=== PATIENT | female | born 1995 | race Hispanic/Latino ===

== ENCOUNTER 2019-05-16 15:36 | Emergency (ER) | payer OTHER ==
[~2019-05-16] VITALS: Ht 157.5 cm; Wt 59.2 kg
[2019-05-16 16:19] LABS: BASO % 0.4 % (0.0-1.0); EOS # 0.1 10^3/uL (0.0-0.5); EOS % 1.9 % (0.0-3.0); HEMATOCRIT 34.1 % (36.0-47.0); HEMOGLOBIN 11.6 g/dl (12.0-15.5); LYMPH # 1.7 10^3/uL (1.5-5.0); LYMPH % 23.5 % (24.0-44.0); MEAN CORPUSCULAR HEMOGLOBIN 31.8 pg (27.0-33.0); MEAN CORPUSCULAR VOLUME 93.4 fl (80.0-96.0); MONO # 0.3 10^3/uL (0.0-0.8); NEUTROPHILS # 5.1 10^3/uL (1.5-8.5); NEUTROPHILS % 69.9 % (36.0-66.0); PLATELET COUNT, AUTOMATED 273 10^3/uL (150-450); RED BLOOD COUNT 3.65 10^6/uL (4.00-5.40); WHITE BLOOD COUNT 7.2 10^3/uL (4.0-10.0)
[2019-05-16 16:45] VITALS: BP 108/55
[2019-05-16 16:54] LABS: HCG, SERUM QUALITATIVE POSITIVE (NEGATIVE)
[2019-05-16 16:56] LABS: BLOOD UREA NITROGEN 7 MG/DL (7-18); CALCIUM LEVEL 8.8 MG/DL (8.5-10.1); CARBON DIOXIDE LEVEL 26 MEQ/L (21-32); CHLORIDE LEVEL 107 MEQ/L (98-107); CREATININE FOR GFR 0.61 MG/DL (0.55-1.30); GLOMERULAR FILTRATION RATE > 60.0 (>60); GLUCOSE, FASTING 101 MG/DL (70-100); HCG, SERUM QUANTITATIVE 21208 MIU/ML; POTASSIUM SERUM 3.5 MEQ/L (3.5-5.1); SODIUM LEVEL 140 MEQ/L (136-145)
== END 2019-05-16 17:10 | disposition admitted as inpatient to this hospital (09) ==
LOC: M ED 15:36
DX: O99.89 Other specified diseases and conditions complicating pregnancy, childbirth and the puerperium (principal); B37.3 Candidiasis of vulva and vagina; R10.31 Right lower quadrant pain; R19.7 Diarrhea, unspecified; Z3A.20 20 weeks gestation of pregnancy; Z88.5 Allergy status to narcotic agent

== ENCOUNTER 2019-05-16 17:04 | Outpatient (CLI) | payer OTHER ==
[~2019-05-16] VITALS: Ht 157.5 cm; Wt 59.8 kg
[2019-05-16 17:25] VITALS: BP 107/59
[2019-05-16 18:23] VITALS: BP 102/54
[2019-05-16] MEDS ORDERED: FLUCONAZOLE 50MG TABLET PO ONE (19:00)
== END 2019-05-16 20:11 | disposition home or self-care (01) ==
LOC: M LDO 17:04
PROVIDERS: ATTEND Advanced Practice Midwife
DX: O99.89 Other specified diseases and conditions complicating pregnancy, childbirth and the puerperium (principal); B37.3 Candidiasis of vulva and vagina; R10.31 Right lower quadrant pain; R19.7 Diarrhea, unspecified; Z3A.20 20 weeks gestation of pregnancy

== ENCOUNTER 2019-06-17 10:22 | Emergency (ER) | payer OTHER ==
[~2019-06-17] VITALS: Ht 157.5 cm; Wt 62.6 kg
[2019-06-17] MEDS ORDERED: LIDO1PAD13 TOP (10:41)
[2019-06-17] MEDS ORDERED: HYDR1CRE93 TOP (10:41)
[2019-06-17] MEDS ORDERED: GABA-845 PO (10:41)
[2019-06-17] MEDS ORDERED: [UNRECOGNIZED DRUG - OTHER] (10:41)
[2019-06-17] MEDS ORDERED: METO10TA2 PO (10:41)
[2019-06-17] MEDS ORDERED: METOCLOPRAMIDE INJ 10MG/2ML VIAL (J2765) IV ONE (11:00)
[2019-06-17] MEDS ORDERED: ACETAMINOPHEN 500 MG TAB PO ONE (11:00)
[2019-06-17] MEDS ORDERED: diphenhydrAMINE INJ 50MG/ML VIAL (J1200) IV ONE (11:00)
[2019-06-17] MEDS ORDERED: NS 1,000 ML IV ONE (11:00)
[2019-06-17 12:29] VITALS: BP 96/54
== END 2019-06-17 13:20 | disposition home or self-care (01) ==
LOC: M ED 10:22
DX: O99.355 Diseases of the nervous system complicating the puerperium (principal); G43.909 Migraine, unspecified, not intractable, without status migrainosus; M54.81 Occipital neuralgia; Z3A.24 24 weeks gestation of pregnancy; Z79.899 Other long term (current) drug therapy; Z88.5 Allergy status to narcotic agent; Z88.8 Allergy status to other drugs, medicaments and biological substances
CPT/HCPCS: 96361; 96374; 96375; 99284; J1200; J2765

== ENCOUNTER 2019-08-11 05:33 | Emergency (ER) | payer OTHER ==
[~2019-08-11] VITALS: Ht 157.5 cm; Wt 64.5 kg
[~2019-08-11 05:33] MED LIST: GABA-845 PO; HYDR1CRE93 TOP; LIDO1PAD13 TOP; METO10TA2 PO; [UNRECOGNIZED DRUG - OTHER]
[2019-08-11] MEDS ORDERED: GNP28TAB2 PO (05:51)
[2019-08-11 08:01] LABS: BASO % 0.5 % (0.0-1.0); EOS # 0.2 10^3/uL (0.0-0.5); EOS % 3.3 % (0.0-3.0); HEMATOCRIT 33.4 % (36.0-47.0); LYMPH # 0.9 10^3/uL (1.5-5.0); LYMPH % 15.4 % (24.0-44.0); MEAN CORPUSCULAR HEMOGLOBIN 31.6 pg (27.0-33.0); MEAN CORPUSCULAR HGB CONC 32.9 g/dl (32.0-36.5); MONO # 0.3 10^3/uL (0.0-0.8); MONO % 5.6 % (0.0-5.0); NEUTROPHILS # 4.6 10^3/uL (1.5-8.5); NEUTROPHILS % 74.9 % (36.0-66.0); PLATELET COUNT, AUTOMATED 262 10^3/uL (150-450); RED BLOOD COUNT 3.48 10^6/uL (4.00-5.40); WHITE BLOOD COUNT 6.1 10^3/uL (4.0-10.0)
[2019-08-11 08:25] LABS: BLOOD UREA NITROGEN 9 MG/DL (7-18); CALCIUM LEVEL 7.8 MG/DL (8.5-10.1); CARBON DIOXIDE LEVEL 25 MEQ/L (21-32); CHLORIDE LEVEL 108 MEQ/L (98-107); CK-MB VALUE MASS < 1.0 NG/ML (<3.6); CPK CREATINE PHOSPHOKINASE 50 U/L (26-192); CREATININE FOR GFR 0.57 MG/DL (0.55-1.30); GLOMERULAR FILTRATION RATE > 60.0 (>60); GLUCOSE, FASTING 72 MG/DL (70-100); POTASSIUM SERUM 3.7 MEQ/L (3.5-5.1); SODIUM LEVEL 139 MEQ/L (136-145); TROPONIN I < 0.02 NG/ML (< 0.10)
[2019-08-11 09:36] VITALS: BP 107/55
--- NOTE | 2019-08-11 09:42 | REP ---
Limited obstetric sonography: History: 33 weeks gestation. Supervision of . Pressure. Findings: Limited obstetric sonography demonstrates a single living intrauterine gestation in a cephalic lie. heart rate is recorded at 135 beats per minute. An anterior placenta is seen without evidence of previa. Amniotic fluid is subjectively low. MARLIN is 2.6 cm which is decreased, (8.4-24.4 cm). SD ratio in the umbilical cord artery by Doppler is normal at 2.23. Impression: Oligohydramnios. Electronically Signed by Sancho Jean MD 08/11/2019 09:34 A
--- NOTE | 2019-08-12 22:12 | ECGEPIP ---
[facility] - ED Test Date: 2019-08-11 Pat Name: LICHA KIRKPATRICK Department: Room: - Gender: Female Front Attendant: : 1995 Requested By: NANCY Fu PA-C Order Number: [id number] Reading MD: Bhavesh Green Measurements Intervals [place] Rate: 73 P: 44 CO: 103 QRS: 50 QRSD: 77 T: 42 QT: 360 QTc: 399 Interpretive Statements SINUS RHYTHM WITH SHORT CO INTERVAL Comparison tracing not on file Electronically Signed on 08-12-2019 22:11:58 EST by Bhavesh Green
== END 2019-08-11 09:40 | disposition admitted as inpatient to this hospital (09) ==
LOC: M ED 05:33
DX: O99.513 Diseases of the respiratory system complicating pregnancy, third trimester (principal); O41.03X0 Oligohydramnios, third trimester, not applicable or unspecified; Z3A.33 33 weeks gestation of pregnancy; Z79.899 Other long term (current) drug therapy; Z88.5 Allergy status to narcotic agent; Z88.8 Allergy status to other drugs, medicaments and biological substances
CPT/HCPCS: 76815; 76820; 80048; 81001; 82550; 82553; 82731; 84484; 85025; 87081; 87210; 87491; 87591; 93005; 99284; J0702

== ENCOUNTER 2019-08-11 09:52 | Outpatient (CLI) | payer OTHER ==
[~2019-08-11] VITALS: Ht 157.5 cm; Wt 65.5 kg
[~2019-08-11 09:52] MED LIST changes: +GNP28TAB2 PO
[2019-08-11 10:09] VITALS: BP 103/58
[2019-08-11] MEDS ORDERED: BETAMETHASONE SOLUSPAN 6MG/ML INJ 5ML (J0702) IM SCH (11:00)
[2019-08-11 13:02] LABS: CHLAMYDIA DNA AMPLIFICATION NEGATIVE (NEGATIVE); GC DNA AMPLIFICATION NEGATIVE (NEGATIVE)
--- NOTE | 2019-08-11 14:37 | IPNPDOC ---
Text Note Date of Service The patient was seen on 08/11/19. NOTE S: Ms. Asif is a 24yo at 32+5wk who initially presented to LND with c/o pelvic pressure and intermittent back pain. She was evaluated in the ER this morning for URI (her children were also sick, with the 10 month old dx with RSV). She reports +FM, denies LOF/VB. She states she has had an increase in vaginal discharge over the past couple of days; she denies itching/burning/odor. This has been complicated by migraine LARSEN, occipitoneuralgia; late entry to care. Her last delivery was 10 months ago, at 35 weeks; she was started on Annamarie at 26wks, administered only three times; she now declines to continue d/t skin reactions. O: VSS, afebrile CBC, CMP, GC, Wet Prep, FFN all negative GBS collected FHR 150s, moderate variability, + accels, few early decelerations noted VE at 1103: 1/20/H, posterior Repeat VE at 1340: unchanged A/P: 24yo at 32+5wks, not in labor at this time; Category I FHT, reactive. Pt received IV hydration 1st Betamethasone administered Return o/a 1130 on [id number] for 2nd dose Strict PTL precautions Meds ordered to be picked up at [place] for URI symptoms (Nasal rinse, Robitu ssin, and Tessalon perles) Quarters slip provided Recommendation for con leave provided (to take care of her children) f/u PRN; Centering appointment scheduled for [id number] VS,Fishbone, I+O VS, Fishbone, I+O Vital Signs Date Time Temp Pulse Resp B/P (MAP) Pulse Ox O2 Delivery O2 Flow Rate FiO2 08/11/19 10:09 97.9 106 20 103/58 (73) HEMANT ALFORD CNM Aug 11, 2019 14:37
== END 2019-08-11 12:09 | disposition home or self-care (01) ==
LOC: M LDO 09:52
PROVIDERS: ATTEND Registered Nurse Maternal Newborn
DX: O99.89 Other specified diseases and conditions complicating pregnancy, childbirth and the puerperium (principal); R10.2 Pelvic and perineal pain; Z3A.35 35 weeks gestation of pregnancy

== ENCOUNTER 2019-08-12 11:53 | Outpatient (CLI) | payer OTHER ==
[~2019-08-12] VITALS: Ht 157.5 cm; Wt 65.4 kg
[2019-08-12 12:11] VITALS: BP 106/57
[2019-08-12] MEDS ORDERED: BETAMETHASONE SOLUSPAN 6MG/ML INJ 5ML (J0702) IM ONE (13:00)
--- NOTE | 2019-08-12 13:00 | IPNPDOC ---
Text Note Date of Service The patient was seen on 08/12/19. NOTE Ms. Asif is a 24yo at 32+6 weeks who presents to L&D today for her second dose of BTMZ due to contractions and a history of delivery. She had a full labor workup yesterday to include a negative FFN. She received her first dose of BTMZ yesterday. Today she reports continued intermittent back pain and contractions. She denies any bleeding or leakage of fluid. She endorses excellent movement. Chaperoned by L&D RN Vitals - VSS, afebrile, normotensive, non tachycardic General - AAOX3, sitting up in bed, NAD Abdomen - Gravid uterus, no fundal tenderness Cervix - ft/thick/high, posterior. (unchanged from yesterday's exam) FHR tracing - Cat I with moderate variability, +accels, no decels. Uterine irritability noted on toco. 12mg IM BTMZ administered for 2nd dose. No cervical change as compared to yesterday. Infectious workup completed yesterday and negative. FFN from yesterday was also negative, thus delivery is highly unlikely within the next 1-2 weeks, especially considering her unchanged cervix on digital exam. Reassuring status. Patient discharged home with return precautions. DO JERRY Galicia CHRISTOPHER J. DO Aug 12, 2019 13:00
== END 2019-08-12 13:10 | disposition home or self-care (01) ==
LOC: M LDO 11:53
PROVIDERS: ATTEND Obstetrics & Gynecology
DX: O60.03 Preterm labor without delivery, third trimester (principal); Z3A.32 32 weeks gestation of pregnancy
CPT/HCPCS: 59025; 96372; G0378; G0463; J0702

== ENCOUNTER 2019-08-17 01:32 | Emergency (ER) | payer OTHER ==
[~2019-08-17] VITALS: Ht 157.5 cm; Wt 64.5 kg
[2019-08-17 02:30] VITALS: BP 120/76
== END 2019-08-17 02:37 | disposition home or self-care (01) ==
LOC: M ED 01:32
DX: O99.89 Other specified diseases and conditions complicating pregnancy, childbirth and the puerperium (principal); K06.9 Disorder of gingiva and edentulous alveolar ridge, unspecified; Z88.5 Allergy status to narcotic agent; Z3A.00 Weeks of gestation of pregnancy not specified

== ENCOUNTER 2019-08-20 00:47 | Inpatient (IN) | payer OTHER ==
[2019-08-20] VITALS (14 sets, daily range): BP systolic 86–132; BP diastolic 47–74
[~2019-08-20] VITALS: Ht 157.5 cm; Wt 64.6 kg
[2019-08-20] MEDS ORDERED: LACTATED RINGER'S 1000 ML IV STA (02:00)
[2019-08-20] MEDS ORDERED: ONDANSETRON 4MG/2ML VIAL (J2405) IV PRN (02:15)
[2019-08-20] MEDS ORDERED: BUTORPHANOL 2 MG/ML INJ (J0595) IV PRN (02:15)
[2019-08-20 02:16] LABS: HEMOGLOBIN 11.4 g/dl (12.0-15.5); MEAN CORPUSCULAR HEMOGLOBIN 31.1 pg (27.0-33.0); MEAN CORPUSCULAR HGB CONC 33.5 g/dl (32.0-36.5); MEAN CORPUSCULAR VOLUME 92.9 fl (80.0-96.0); PLATELET COUNT, AUTOMATED 308 10^3/uL (150-450); RED BLOOD COUNT 3.66 10^6/uL (4.00-5.40); WHITE BLOOD COUNT 9.3 10^3/uL (4.0-10.0)
--- NOTE | 2019-08-20 02:22 | HPEPDOC ---
Obstetrical History & Physical General Date of Admission Aug 20, 2019 at 01:19 History of Present Illness 24 yo at 34+0 weeks gestation by 20+6 week US on 20May2019 (late to car e, did not know she was ) presented to L&D with the complaint of regular, painful contractions that have been worsening throughout the evening. She also reports possible leakage of a small amount of fluid into her pad. She denies any bleeding. She endorses movement. She has a history of an apparent 35 or 36 week and she has received a couple doses of 17-OHP this . Chief Complaint: Contractions, pre-term Information Provided By: Patient Age: 24 : 4 Term: 1 Pre-term: 1 Abortions: 1 Livin Care Care: Limited Care Dating Final EDC: Oct 01, 2019 Final EDC for Daily Update: Oct 01, 2019 Final EDC by: 2nd trimester (US) (MAXIMILIANO set by 20+6 week US on 20May2019. Late to care and unknown LMP (did not know she was initially)) Antepartum Course Diagnos(e)s Apparent history of delivery at 35-36 weeks ---> has received a few doses of 17-OHP this History of anxiety/depression, especially severe --> counseling Past Medical History Past Obstetrical History : Past Obstetrical History: Multigravida ( at 35-36 weeks and also at 39 weeks.) Type of Delivery: Spontaneous Vaginal Del. BAND SAWYER History: History of STD (History of chlamydia in 2nd ) Past Medical History Medical History Depression/anxiety Surgical History: Appendectomy (L/S Appendectomy) Family History Significant Family History: No pertinent family hx Social History Marital Status: Seperated Psychosocial History: Anxiety, Depression * Smoker: non-smoker Alcohol: Denies Drugs: denies Imunizations Tdap status: current Influenza Status: current Allergies Coded Allergies: hydrocodone (Verified Allergy, Severe, b/p drops, 06/17/19) morphine (Verified Allergy, Severe, b/p drops, 06/17/19) oxycodone (Verified Allergy, Severe, b/p drops, 06/17/19) codeine (Verified Allergy, Unknown, b/p drops, 06/17/19) Medications Scheduled Pnv No.95/Ferrous Fum/Folic AC ( Vitamins Tablet) 1 Each Tablet, 1 TAB PO DAILY Physical Examination Physical Examination Chaperoned by L&D RN GENERAL: Alert and oriented times three. ABDOMEN: Gravid and non-tender to touch. FETUS: Is vertex (VTX) by sterile vaginal examination (SVE) EXTREMITIES: No edema. PELVIC EXAM: Normal external genitalia. speculum placed into the vagina. Small amount of white discharge seen in vault. No pooling of fluid and no leakage with valsalva. Swabs obtained for nitrazine and ferning slide. Nitrazine - positive Ferning slide - Negative for ferning. Sperm seen on slide. Bedside TAUS - Cephalic presenting infant Pertinent Laboratoy Data Blood Type: O+ RBC Antibody Screen: Negative HIV: Negative Hepatitis B: Negative Hepatitis C: Unknown Rapid Plasma Reagin: Nonreactive Rubella: Immune Varicella: Immune Chlamydia/Gonorrhea: Negative Group B Streptococcus: Negative (GBS negative as obtained on 11Aug2019) Quad Screen Test: Unknown Cystic Fibrosis: Unknown Glucose Tolerance Test: 80 Anatomy Ultrasound Placenta Location: Anterior Normal Anatomy: Yes Placenta Previa: No Steroid Therapy Steroid Therapy: Yes Date #1: Aug 11, 2019 Date #2: Aug 12, 2019 Reason Concern for labor Vaginal Examination Dilation: 2cm Effacement: 50% Station: -3 Cervical Consistency: Medium Cervical Position: Middle Presentation: Cephalic presentation Position: Vertex (occiput) Assessment Heart Rate (FHR): 150 Variability: Moderate Accelerations: Positive Decelerations: Variable (Sporadic variable decels, not deep or persistent) Tocometer Contractions: Yes Frequency: regular Duration: greater than 60 seconds Strength: palpated as moderate Assessment/Plan Assessment 24 yo at 34+0 weeks by 20+6 week US presents to L&D in labor. Plan Admit to L&D for expectant management of labor. Patient is 34+0 weeks gestation. She is BTMZ complete as of 12Aug2019 and will not require another dose. She is also GBS negative as per swab on 11Aug2019. Apply IV fluids. Will bolus 1L and then run continuously at 125ml/hr. Clear liquid diet IV analgesia while in latent labor and candidate for epidural when in active labor. All patient questions answered. DO JERRY Thompson CHRISTOPHER J. DO Aug 20, 2019 02:22
--- NOTE | 2019-08-20 10:42 | IPNPDOC ---
Obstetrical Progress Note Date of Service Aug 20, 2019 Subjective Received report and assumed care of 24yo at 34+0wks who was admitted this morning in early PTL. Ms. Asif reports that contractions have spaced out, but the intensity has increased; pain now reported at 8/10. She declines pain meds at this time. She is also reporting bloody show. Objective O: VSS, BP normotensive FHR 155, moderate variability, + accels; intermittent periodic variable decelerations CTX: present, mild by palpation, q4-10 minutes SVE at 1020: 3.5/50/-3 Vital Signs Date Time Temp Pulse Resp B/P (MAP) Pulse Ox O2 Delivery O2 Flow Rate FiO2 08/20/19 10:18 93 18 132/74 (93) 08/20/19 07:26 97.3 Assessment and Plan Status: Reassuring Group B Streptococcus: Negative Anticipate: Vaginal Delivery Additional Comments A: Early Pre-term labor, Category II FHT (d/t intermittent variable decelerations), overall reassuring status. P: CEFM x2 IV anelgesia PRN; epidural when she reaches active labor (or sooner if desired) May have meal trays until active labor IV and PO hydration Consult with OB as indicated Reassess in 4-6 hour or sooner PRN Anticipate HEMANT ALFORD CNM Aug 20, 2019 10:42
[2019-08-20] MEDS: LR 1,000 ML IV SCH ×2 (11:05→18:50)
--- NOTE | 2019-08-20 20:59 | IPNPDOC ---
Obstetrical Progress Note Date of Service Aug 20, 2019 Subjective In room for labor progress assessment. Ms. Asif is a 24yo at 34wks who has been admitted since early this morning for PTL. She states that she feels that her contractions have spaced out, but are still painful when they occur. She denies LOF; reports +FM and bloody show. She desires medication to help sleep tonight. Objective O: VSS, BP normotensive FHR 145, moderate variability, + accels, no decels at this time CTX: occasional SVE at 2039: 4/60/-2, BBOW Vital Signs Date Time Temp Pulse Resp B/P (MAP) Pulse Ox O2 Delivery O2 Flow Rate FiO2 08/20/19 18:23 83 18 121/64 (83) 08/20/19 17:23 97.4 Assessment Heart Rate Tracing: Category I Assessment and Plan Status: Reassuring Group B Streptococcus: Negative Anticipate: Vaginal Delivery Additional Comments A: Early PTL, slow progression, Category I FHT P: CEFM x2 PO and IV hydration Can eat meals until in active labor Will write for unisom for sleep IV pain medication available PRN Consult with OB as indicated Anticipate HEMANT ALFORD CNM Aug 20, 2019 20:59
[2019-08-20] MEDS ORDERED: diphenhydrAMINE 25 MG CAP PO ONE (21:00)
[2019-08-21] VITALS (34 sets, daily range): BP systolic 90–126; BP diastolic 44–67
[2019-08-21] MEDS ORDERED: FENTANYL 2MCG/ML ROPIVACAINE 0.2% IN 0.9% NACL 100ML IVBAG As Ordered ONE (07:01)
--- NOTE | 2019-08-21 07:10 | IPNPDOC ---
Obstetrical Progress Note Date of Service Aug 21, 2019 Subjective In room for labor assessment. Ms. Asif is c/o worsening pain with contractions and feeling pressures. She desires exam prior to medication administration. Objective O: VSS, BP normotensive FHR 140s-150s, moderate variability, + accels; appeared to have late decel after exam, but resolved with position change. CTX q 6-8 minutes, strong by palpation SVE: 6/90/-1 with BBOW Vital Signs Date Time Temp Pulse Resp B/P (MAP) Pulse Ox O2 Delivery O2 Flow Rate FiO2 08/21/19 06:08 97.7 68 18 111/58 (75) Assessment and Plan Status: Reassuring Group B Streptococcus: Negative Anticipate: Vaginal Delivery Additional Comments A: Active Labor, Category II FHT (d/t late decel), but overall reassuring. 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
[2019-08-21] MEDS: LR 1,000 ML IV SCH (07:20)
[2019-08-21] MEDS ORDERED: NALOXONE INJ 0.4 MG/1 ML VIAL (J2310) IV PRN (07:44)
[2019-08-21] MEDS ORDERED: EPIDURAL COMMENT XX SCH (07:44)
[2019-08-21] MEDS ORDERED: FENTANYL/ROPIVACAINE/NACL BAG 100 ML EPIDURAL SCH (07:44)
[2019-08-21] MEDS ORDERED: REFRIGERATOR IV KEYS XX PRN (07:44)
[2019-08-21] MEDS ORDERED: LACTATED RINGER'S 1000 ML IV PRN (07:44)
[2019-08-21] MEDS ORDERED: ONDANSETRON 4MG/2ML VIAL (J2405) IV PRN (07:44)
[2019-08-21] MEDS ORDERED: diphenhydrAMINE INJ 50MG/ML VIAL (J1200) IV PRN (07:44)
[2019-08-21] MEDS ORDERED: EPIDURAL/PCA KEYS XX PRN (07:44)
[2019-08-21] MEDS: ePHEDrine SULFATE 25 MG/5 ML(5MG/ML) SYRINGE IV PRN ×2 (08:47→10:34)
--- NOTE | 2019-08-21 09:04 | IPNPDOC ---
Text Note Date of Service The patient was seen on 08/21/19. NOTE patient is a 24 yo at 34+1 weeks gestation by 20+6 week US on [id number] admitted to l&d for labor, HD #2. She continues to have regular painful contractions. Last checked at 0800 this morning to be 6cm dilated. She has epidural for pain management. She is steroid complete. GBS negative. Vital: normal NAD, laying in bed fht: 145/mod alicia/pos accel/no decel toco: ctx q 2mins a/p patient is @34wks, likely in active labor. Will continue expectant management at this point. recheck in 4hrs. Deisy, VS,Ronaldo, I+O VS, Fishbone, I+O Vital Signs Date Time Temp Pulse Resp B/P (MAP) Pulse Ox O2 Delivery O2 Flow Rate FiO2 08/21/19 06:08 97.7 68 18 111/58 (75) I&O- Last 24 Hours up to 6 AM 08/21/19 06:00 Intake Total 1500 ml Balance 1500 ml MAURICE MANZANARES DO Aug 21, 2019 09:04
--- NOTE | 2019-08-21 10:42 | IPNPDOC ---
Text Note Date of Service The patient was seen on 08/21/19. NOTE patient feeling constant pressure. vitals: normal nad abd: gravid, soft, nt fht: 145/mod alicia/pos accel/variable decels toco: ctx q 2-5mins ce: c/c/0, BOW a/p patient in second stage of labor. will start pushing. le, DO VS,Fishbone, I+O VS, Fishbone, I+O Vital Signs Date Time Temp Pulse Resp B/P (MAP) Pulse Ox O2 Delivery O2 Flow Rate FiO2 08/21/19 10:20 69 18 94/44 (61) 08/21/19 08:33 97.9 I&O- Last 24 Hours up to 6 AM 08/21/19 06:00 Intake Total 1500 ml Balance 1500 ml MAURICE MANZANARES DO Aug 21, 2019 10:42
[2019-08-21] MEDS ORDERED: OXYTOCIN 30 UNITS IN 0.9% NaCl 500ML IV BAG (J2590) As Ordered ONE (10:47)
--- NOTE | 2019-08-21 11:34 | DNPDOC ---
[facility] Delivery Note Delivery Note DATE OF DELIVERY: 08/21/19 PREDELIVERY DIAGNOSIS: 34+1/7 weeks' gestation and labor. POST DELIVERY DIAGNOSIS: Delivered. PROCEDURE: ЮЛИЯ BUCKET CHUCKER: Dr. Tim Olivas DO ANESTHESIA: epidural ESTIMATED BLOOD LOSS: 250mL. FINDINGS: 4pound 13 ounce male infant, Score 9/9, nuchal cord times x1, true knot, right compound hand. DELIVERY SUMMARY: Patient checked to be c/c/+1 with BOW. AROM clear. With subsequent push, baby delivere OA, restituted LOT. Nuchal cord manually reduced. Anterior shoulder delivered, followed by right compound hand and posterior shoulder. Body followed with ease. Baby kept below for delay cord clamping. Baby with vigorous cries. Cord clamped x 2, cut by FOB. Baby handed to waiting cell liner for evaluation. Cord blood collected for gas. Pitocin bolus started. Placenta delivered spontaneously. Fundus massaged firm. Vagina/perineum inspection reveals no laceration. Baby and mother bonding when I left the room. DO LEIGHTON Olivas LUAT N. DO Aug 21, 2019 11:34
[2019-08-21 11:35] LABS: CORD GAS ABE V -1.1; CORD GAS HCO3 V 23.7 MEQ/L; CORD GAS O2 SAT V 80.5 %; CORD GAS PCO2 V 39.9 mmHg; CORD GAS PH V 7.391 UNITS; CORD GAS PO2 V 34.4 mmHg; CORD GAS SBC V 23.1 MEQ/L; CORD GAS TCO2 V 24.9 MEQ/L
[2019-08-21 11:36] LABS: CORD GAS ABE A -4.4; CORD GAS HCO3 A 22.9 MEQ/L; CORD GAS O2 SAT A 59.2 %; CORD GAS PH A 7.27 UNITS; CORD GAS PO2 A 24.9 mmHg; CORD GAS SBC A 20.1 MEQ/L; CORD GAS TCO2 A 24.5 MEQ/L
[2019-08-21] MEDS ORDERED: RHOGAM 300 MCG (1500 IU) INJ (J2790) IM SCH (11:45)
[2019-08-21] MEDS ORDERED: MEASLES,MUMPS,RUBELLA VACCINE INJ (MMR-II) (90707) SC SCH (11:45)
[2019-08-21] MEDS ORDERED: OXYTOCIN DRIP 30 UNITS in IV 1 EA IV SCH (11:45)
[2019-08-21] MEDS ORDERED: ACETAMINOPHEN TAB 650MG DOSE (2X325MG) PO PRN (11:45)
[2019-08-21] MEDS ORDERED: DIBUCAINE 1% OINTMENT 30GM TOP PRN (11:45)
[2019-08-21] MEDS ORDERED: DOCUSATE SODIUM 100 MG CAP PO PRN (11:45)
[2019-08-21] MEDS ORDERED: LR 1,000 ML IV SCH (12:00)
[2019-08-21] MEDS ORDERED: SLF 3 ML SYR IV SCH (13:30)
[2019-08-21] MEDS ORDERED: SLF 3 ML SYR IV PRN (18:30)
[2019-08-21] MEDS: IBUPROFEN 800 MG TAB PO PRN (20:41)
[2019-08-22] MEDS: IBUPROFEN 800 MG TAB PO PRN (04:06)
[2019-08-22 06:00] VITALS: BP 105/53
--- NOTE | 2019-08-22 08:00 | IPNPDOC ---
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 Patient without concerns today. She has been ambulating, voiding spontaneously without issue and tolerating regular diet. Breast pumping without issue. Reports lochia is light. Patient plans to use paragard for contraception. OBJECTIVE: VITAL SIGNS: Within normal limits, afebrile. Alert and oriented times three. Abdomen: Fundus firm at U-1. Soft, NTTP. LE: neg edema/erythema/tenderness A/P Patient is ppd #1, doing well. baby in NICU. encourage breast pumping. convalescent erick given. discharge to boarding today. Deisy, VS, I&O, [facility] Vital Signs/I&O Vital Signs Date Time Temp Pulse Resp B/P (MAP) Pulse Ox O2 Delivery O2 Flow Rate FiO2 08/22/19 06:00 98.8 83 20 105/53 (70) 99 I&O- Last 24 Hours up to 6 AM 08/22/19 06:00 Intake Total 1840 ml Output Total 1500 ml Balance 340 ml Laboratory Data 24H LABS Laboratory Tests 2 08/21/19 11:28: Cord Arterial Blood pH 7.270, Cord Arterial Blood PCO2 51.0, Cord Arterial Blood PO2 24.9, Cord Arterial Blood HCO3 22.9, Cord Arterial Blood Total CO2 24.5, Cord Arterial Blood Base Excess -4.4, Cord Arterial Base Excess (Standard 20.1, Cord Arterial Bld Oxygen Saturation 59.2, Cord Venous Blood pH 7.391, Cord Venous Blood PCO2 39.9, Cord Venous Blood PO2 34.4, Cord Venous Blood HCO3 23.7, Cord Venous Blood Total CO2 24.9, Cord Venous Base Excess (Actual) -1.1, Cord Venous Base Excess (Standard) 23.1, Cord Venous Blood Oxygen Saturation 80.5 MAURICE MANZANARES DO Aug 22, 2019 08:00
--- NOTE | 2019-08-22 08:10 | OBDS ---
[facility] Obstetrical Discharge Sum. Obstetrical Discharge Summary Warning Analyst/Provider: MAURICE MANZANARES DO : 4 Term: 1 Pre-term: 2 Abortions: 1 Livin VDRL: Non-Reactive Rh: Positive Rubella: Immune Infant Sex: Male Weight: pounds (4), ounces (13), grams Anesthesia: Regional Anesthesia A/P, Post Course List any complications Admission diagnosis: labor @ 34wks gestation Discharge diagnosis: Condition at Discharge: stable Discharge Instructions: Home Activity: as tolerated Diet: regular Medications: to be picked up at [facility] Follow-up: 2wks Discharge Summary: Patient admitted at 34 wks gestation for labor. She was given betamethasone series for lung maturity about a week prior to this admission. Patient progressed to have a spontaneous vaginal delivery. Patient's course uncomplicated and she meets discharge criteria on day #1. MAURIEC MANZANARES DO Aug 21, 2019 11:48
[2019-08-22] MEDS ORDERED: PRENATAL VITAMINS CHEWABLE TABLET PO SCH (09:00)
== END 2019-08-22 14:40 | disposition home or self-care (01) | DRG 807 ==
LOC: M LDO 00:47 → M LDI 01:19 → M OBS 08-21 14:13
PROVIDERS: ADMIT Obstetrics & Gynecology; ATTEND Obstetrics & Gynecology
PROC: 10E0XZZ Delivery of Products of Conception, External Approach (ICD-10-PCS; principal; 2019-08-21)
PROC: 10907ZC Drainage of Amniotic Fluid, Therapeutic from Products of Conception, Via Natural or Artificial Opening (ICD-10-PCS; 2019-08-21)
DX: O60.14X0 Preterm labor third trimester with preterm delivery third trimester, not applicable or unspecified (principal); Z37.0 Single live birth; Z3A.34 34 weeks gestation of pregnancy; O69.81X0 Labor and delivery complicated by cord around neck, without compression, not applicable or unspecified; O69.2XX0 Labor and delivery complicated by other cord entanglement, with compression, not applicable or unspecified; O64.5XX0 Obstructed labor due to compound presentation, not applicable or unspecified

== ENCOUNTER → 2020-05-12 | Outpatient (REF) | payer OTHER ==
[~2020-05-12] MED LIST changes: +MACR100C43 PO
== END ==
LOC: M LAB REF 16:15
PROVIDERS: ATTEND Physician Assistant Medical
DX: Z20.828 Contact with and (suspected) exposure to other viral communicable diseases (principal)

== ENCOUNTER 2020-07-03 09:10 | Emergency (ER) | payer OTHER ==
[~2020-07-03] VITALS: Ht 157.5 cm; Wt 53.7 kg
[~2020-07-03 09:10] MED LIST changes: -MACR100C43 PO
[2020-07-03] MEDS: GASTROGRAFIN SOLUTION 30ML PO SCH ×2 (10:12→10:58)
[2020-07-03 10:15] LABS: BASO % 0.7 % (0.0-1.0); EOS # 0.1 10^3/uL (0.0-0.5); EOS % 1.4 % (0.0-3.0); HEMATOCRIT 38.4 % (36.0-47.0); HEMOGLOBIN 12.7 g/dl (12.0-15.5); LYMPH # 1.6 10^3/uL (1.5-5.0); LYMPH % 35.6 % (24.0-44.0); MEAN CORPUSCULAR HEMOGLOBIN 30.3 pg (27.0-33.0); MEAN CORPUSCULAR HGB CONC 33.1 g/dl (32.0-36.5); MEAN CORPUSCULAR VOLUME 91.6 fl (80.0-96.0); MONO # 0.3 10^3/uL (0.0-0.8); MONO % 5.7 % (0.0-5.0); NEUTROPHILS # 2.5 10^3/uL (1.5-8.5); NEUTROPHILS % 56.1 % (36.0-66.0); PLATELET COUNT, AUTOMATED 285 10^3/uL (150-450); RED BLOOD COUNT 4.19 10^6/uL (4.00-5.40); WHITE BLOOD COUNT 4.4 10^3/uL (4.0-10.0)
[2020-07-03] MEDS ORDERED: ONDANSETRON 4MG/2ML VIAL IV ONE (10:45)
[2020-07-03 11:01] LABS: ALBUMIN 3.7 GM/DL (3.2-5.2); ALT/SGPT 15 U/L (12-78); AMYLASE 46 U/L (25-115); BILIRUBIN,DIRECT < 0.1 MG/DL (0.0-0.2); BILIRUBIN,TOTAL 0.4 MG/DL (0.2-1.0); LIPASE 85 U/L (73-393); TOTAL PROTEIN 6.9 GM/DL (6.4-8.2)
[2020-07-03] MEDS ORDERED: ISOVUE-370 76% 100ML VIAL As Ordered ONE (11:37)
--- NOTE | 2020-07-03 12:10 | REP ---
INDICATION: diffuse abd pain x5 mo's, incr LLQ, FHX celiacs, mucous stoo. COMPARISON: None. TECHNIQUE: Oral Gastrografin mixture per our bowel contrast protocol. Bolus of 100 mL Isovue 370 scanning through the abdomen and pelvis with coronal and sagittal reconstructions provided. FINDINGS: CT abdomen: Lung bases are clear. Heart is not enlarged there is no pericardial thickening or effusion. No hiatal hernia. There is no some hepatosplenomegaly focal splenic lesion or biliary dilatation sub cm low-density focus right hepatic lobe near the dome of the diaphragm consistent with a benign finding. Gallbladder shows no calcified stone or mass visualized pancreas unremarkable. Oral contrast in the stomach without wall thickening or mass. There is nonspecific thickening of proximal small bowel loops in the left upper quadrant jejunum in its left upper quadrant. This is not dilated. Remainder of mid to distal jejunum and ileum show no dilatation or wall thickening. The terminal ileum appear grossly unremarkable. Stool and gas throughout the abdominal portion of the colon with oral contrast reaching the right colon. There is no ascites, perforation or free air. Adrenal glands are normal. The kidneys show symmetric enhancement without mass, hydronephrosis, stone or cyst. There are no inflammatory changes about the cecum. Lung window review of all CT slices shows no perforation. Bone windows show the lumbar, lower thoracic spine and the posterior elements as well as visualized ribs intact CT pelvis: The bony sacrum, SI joints, iliac bones and hips of were unremarkable. Distal left colon, sigmoid and rectum without signs of colitis or diverticulitis. I do not see pelvic free fluid. Bladder is partially filled without wall thickening, mass or stone. Uterus anteverted not grossly enlarged. In the right parametrial location there is enhancing structure with some lower density central region and appearance favors a adnexal process such as hydrosalpinx. No such finding in the left adnexal region. No ventral or inguinal hernia nor pathologic sized inguinal adenopathy. IMPRESSION: 1. Nonspecific mild thickening of proximal jejunal bowel wall loops without dilatation, adjacent fluid or inflammatory change. This may be nonspecific gastroenteritis. Remainder of the jejunum and ileum are unremarkable. 2. The colon and rectum show no sign of colitis diverticulitis stricture or mass. 3. Uterus anteverted in the right parametrial location there is a rim enhancing low-density fluid area suggesting possible hydrosalpinx or other adnexal lesion. I do not see if similar finding on the left side. 4. Solid organs in the upper abdomen without acute finding. Gallbladder partially contracted without calcified stone or mass. Bones intact. <Electronically signed by Blas Culver > 07/03/20 [id number]
--- NOTE | 2020-07-03 13:13 | REP ---
INDICATION: rim enhacing lesion right adenxa on CT. COMPARISON: Comparison is made with today's. TECHNIQUE: Transabdominal and transvaginal scanning were performed. FINDINGS: Uterine dimensions are normal at 9.9 x 4.7 x 5.8 cm. Endometrial echo is 1.0 cm thick and centrally placed. No free fluid is seen in the cul-de-sac. Visualized bladder linares are smooth. The right ovary has dimensions of 3.6 x 2.1 x 2.8 cm. It's Doppler flow is normal with a resistive index of 0.39. There is a 0.6 x 0.3 x 0.4 cm hyperechoic area in the right ovary consistent with a complex cyst. The left ovary could not be seen transabdominally or transvaginally consistent with its high position on pelvic CT study. There is a very small quantity of free fluid in the cul-de-sac. No left adnexal mass or cyst. IMPRESSION: Normal pelvic sonography. <Electronically signed by Sherif Jean > 07/03/20 [id number]
[2020-07-03] MEDS ORDERED: MACR100C43 PO (13:54)
[2020-07-03 14:09] VITALS: BP 108/54
== END 2020-07-03 14:56 | disposition home or self-care (01) ==
LOC: M ED 09:10
DX: R10.9 Unspecified abdominal pain (principal); K52.9 Noninfective gastroenteritis and colitis, unspecified; N39.0 Urinary tract infection, site not specified; Z88.5 Allergy status to narcotic agent; Z87.891 Personal history of nicotine dependence; F10.10 Alcohol abuse, uncomplicated
CPT/HCPCS: 74177; 76830; 76856; 80047; 80076; 81001; 82150; 83690; 84702; 85025; 87088; 87186; 93976; 96374; 99284; J2405; Q9963; Q9967

== ENCOUNTER 2020-08-08 09:24 | Day surgery (SDC) | payer OTHER ==
[~2020-08-08] VITALS: Ht 157.5 cm; Wt 51.3 kg
[~2020-08-08 09:24] MED LIST changes: +MACR100C43 PO; +NS 1,000 ML IV ONE
[2020-08-08] MEDS ORDERED: propofoL 200 MG/20 ML VIAL As Ordered ONE ×2 (10:35→11:27)
[2020-08-08] MEDS ORDERED: LIDOCAINE 2% 100MG/5ML SDV (FOR ANES.) As Ordered ONE (10:35)
[2020-08-08] MEDS ORDERED: fentaNYL 100 MCG/2 ML INJECTION (J3010) As Ordered ONE (11:09)
--- NOTE | 2020-08-08 11:24 | ROOR ---
Patient Name: Patricia Aburto Procedure Date: 08/08/2020 11:07 AM Date of : 1995 Age: 25 Room: [facility] Gender: Female Note Status: Finalized Procedure: Upper Endoscopy + Biopsies Indications: Epigastric abdominal pain, Heartburn, Exclusion of celiac disease Providers: Dayday Calhoun MD Referring MD: KIMBERLY YATES MD Requesting Provider: Medicines: Monitored Anesthesia Care Complications: No immediate complications. Procedure: Pre-Anesthesia Assessment: - The heart rate, respiratory rate, oxygen saturations, blood pressure, adequacy of pulmonary ventilation, and response to care were monitored throughout the procedure. The Endoscope was introduced through the mouth, and advanced to the second part of duodenum. The upper GI endoscopy was accomplished without difficulty. The patient tolerated the procedure well. Findings: The Z-line was regular and was found 40 cm from the incisors. No other significant abnormalities were identified in a careful examination of the stomach. The exam of the duodenum was otherwise normal. Biopsies for histology were taken with a cold forceps in the first portion of the duodenum for evaluation of celiac disease. The exam was otherwise without abnormality. Impression: - Z-line regular, 40 cm from the incisors. - The examination was otherwise normal. - Biopsies were taken with a cold forceps for evaluation of celiac disease. - The examination was otherwise normal. Recommendation: - Patient has a contact number available for emergencies. The signs and symptoms of potential delayed complications were discussed with the patient. Return to normal activities tomorrow. Written discharge instructions were provided to the patient. - High fiber diet. - Discharge patient to home. - Continue present medications. - Await pathology results. - Telephone GI clinic for pathology results in 1 week. - Return to referring physician. - The findings and recommendations were discussed with the patient. Procedure Code(s): --- Professional --- 11121, Esophagogastroduodenoscopy, flexible, transoral; with biopsy, single or multiple Diagnosis Code(s): --- Professional --- R10.13, Epigastric pain R12, Heartburn CPT copyright 2019 [employer] [place] [employer]. All rights reserved. The codes documented in this report are preliminary and upon fish butcher review may be revised to meet current compliance requirements. Dayday Calhonu MD Dayday Calhoun MD 08/08/2020 11:24:09 AM Electronically signed by Dayday Calhoun MD Number of Addenda: 0 Note Initiated On: 08/08/2020 11:07 AM Estimated Blood Loss: Estimated blood loss: none.
--- NOTE | 2020-08-08 11:39 | ROOR ---
Patient Name: Patricia Aburto Procedure Date: 08/08/2020 11:08 AM Date of : 1995 Age: 25 Room: [facility] Gender: Female Note Status: Finalized Procedure: Total Colonoscopy to the Cecum Indications: Abdominal pain in the left lower quadrant Providers: Dayday Calhoun MD Referring MD: KIMBERLY YATES MD Requesting Provider: Medicines: Monitored Anesthesia Care Complications: No immediate complications. Procedure: Pre-Anesthesia Assessment: - The heart rate, respiratory rate, oxygen saturations, blood pressure, adequacy of pulmonary ventilation, and response to care were monitored throughout the procedure. The Colonoscope was introduced through the anus and advanced to the cecum, identified by appendiceal orifice and ileocecal valve. The colonoscopy was performed without difficulty. The patient tolerated the procedure well. The quality of the bowel preparation was excellent. Findings: The perianal and digital rectal examinations were normal. No other significant abnormalities were identified in a careful examination of the remainder of the colon. The exam was otherwise without abnormality on direct and retroflexion views. Impression: - The examination was otherwise normal on direct and retroflexion views. - No specimens collected. - The exam was otherwise normal to the cecum. Recommendation: - Patient has a contact number available for emergencies. The signs and symptoms of potential delayed complications were discussed with the patient. Return to normal activities tomorrow. Written discharge instructions were provided to the patient. - High fiber diet. - Discharge patient to home. - Continue present medications. - Repeat colonoscopy at age 51 for screening purposes. - Return to referring physician. - The findings and recommendations were discussed with the patient. Procedure Code(s): --- Professional --- 10909, Colonoscopy, flexible; diagnostic, including collection of specimen(s) by brushing or washing, when performed (separate procedure) Diagnosis Code(s): --- Professional --- R10.32, Left lower quadrant pain CPT copyright 2019 [employer]. All rights reserved. The codes documented in this report are preliminary and upon blending technician review may be revised to meet current compliance requirements. Dayday Calhoun MD Dayday Calhoun MD 08/08/2020 11:38:37 AM Electronically signed by Dayday Calhoun MD Number of Addenda: 0 Note Initiated On: 08/08/2020 11:08 AM Estimated Blood Loss: Estimated blood loss: none.
[2020-08-08 11:50] VITALS: BP 110/59
== END 2020-08-08 12:05 | disposition home or self-care (01) ==
LOC: M OPP 09:24
PROVIDERS: ATTEND Internal Medicine Gastroenterology
DX: R10.32 Left lower quadrant pain (principal); R10.13 Epigastric pain; R12 Heartburn
CPT/HCPCS: 43239; 45378; 88305; J3010

== ENCOUNTER → 2020-12-27 | Outpatient (REF) | payer OTHER ==
[~2020-12-27] MED LIST changes: -NS 1,000 ML IV ONE
== END ==
LOC: M LAB REF 16:13
PROVIDERS: ATTEND Physician Assistant
DX: J02.9 Acute pharyngitis, unspecified (principal); R50.9 Fever, unspecified

== ENCOUNTER → 2021-06-24 | Outpatient (CLI) | payer OTHER ==
[~2021-06-24] MED LIST changes: +GABA-283 PO; -GABA-845 PO; -HYDR1CRE93 TOP; +HYDR28CR33 TOP
--- NOTE | 2021-06-24 16:53 | REP ---
INDICATION: PAIN IN BREAST. COMPARISON: None TECHNIQUE: Real-time sonographic evaluation of left breast performed. FINDINGS: Reportedly there is pain between 2 and 6 o'clock in the left breast. At the 2 o'clock position there is a hypoechoic solid nodule measuring 8 x 10 x 9 mm, approximately 5-6 cm from the nipple. IMPRESSION: BIRADS/ACR category 4, suspicious. Solid nodule 2 o'clock left breast. RECOMMENDATION: Recommend ultrasound-guided biopsy solid left breast nodule at 2 o'clock. <Electronically signed by Jefferson Barlow > 06/24/21 [id number]
== END ==
LOC: M RAD 15:11
DX: N64.4 Mastodynia (principal); N63.21 Unspecified lump in the left breast, upper outer quadrant

== ENCOUNTER → 2021-07-22 | Outpatient (CLI) | payer OTHER ==
[~2021-07-22] MED LIST changes: +DOXY-443 PO; +IBUP1TAB7 PO; +MIRA3350 PO; +PARO20TA4 PO; +ULTR50TA8 PO; +mirena
== END ==
LOC: M PLALAB 14:35
PROVIDERS: ATTEND Surgery
DX: Z13.79 Encounter for other screening for genetic and chromosomal anomalies (principal)

== ENCOUNTER → 2021-07-24 | Outpatient (CLI) | payer OTHER ==
[2021-07-24 14:05] VITALS: BP 108/64
--- NOTE | 2021-07-25 14:07 | ROOPDOC ---
[facility] Report Of Operation Report of Operation DATE OF PROCEDURE: 07/24/21 DIAGNOSIS: left breast suspicious lesion PROCEDURE: ultrasound guided biopsy of the left breast suspicious lesion with clip placement SURGEON: Ceci Leonardo BLOOD LOSS: minimal COMPLICATIONS: none Lidocaine 1% LOT [id number] Expiration 12/2024 Sodium Bicarbonate 8.4% LOT [id number] Expiration 01/2023 Hydromark clip LOT [id number] Expiration 11/2023 SHAPE: 3 Bx device: BARD [id number] x10 cm LOT [id number] Expiration 04/2024 Informed consent was obtained. The most common risk and possible complications including bleeding, hematoma, bruising, infection, injury to surrounding structures were explained to the patient and the patient expressed understanding. Patient was placed on the bed in the supine position. Appropriate time out was done stating patients name, date of , and the procedure to be performed. The left breast was prepped and draped in the usual fashion. The ultrasound was used to confirm the location of the lesion in the left breast at 2:00 7 centimeters from the nipple. Plain Lidocaine 1% and 8.4% sodium bicarbonate 10:1 mix was used to anesthetize the skin, the biopsy site and tissues along the anticipated biopsy tract. Small skin incision was made with blade number 11. BARD Marquee 14G cannula with introducer ([id number]) was inserted through the incision and advanced under the ultrasound guidance to position immediately adjacent to the lesion. Next, the introducer was removed and BARD Marquee 14G biopsy device was places in the cannula. Pre-biopsy imaging, and post-biopsy imaging were captured. Five good core biopsies were taken at various levels of the lesion. Specimen was placed in formaldehyde, labeled with appropriate biopsy site and patients name, and sent to pathology for evaluation. Next, the biopsy device was withdrawn and a clip introducer was inserted into the biopsy site via the cannula. SHAPE 3 Hydromark clip was deployed under sonographic guidance. Post-clip placement image was captured. Manual pressure over the biopsy cavity and tract was held after the clip introducer was withdrawn. No bleeding was noted upon removal of the pressure. Post-biopsy mammogram of the left breast was not obtained as the clip was clearly visible on sonography and due to patients young age. Patient tolerated procedure well. Discharge instructions were discussed with the patient and the patient expressed understanding. CECI LEONARDO DO Jul 25, 2021 14:07
== END ==
LOC: M WHCPRO 10:16
PROVIDERS: ATTEND Surgery
DX: D24.2 Benign neoplasm of left breast (principal); N63.20 Unspecified lump in the left breast, unspecified quadrant

== ENCOUNTER 2021-08-13 06:06 | Day surgery (SDC) | payer OTHER ==
[~2021-08-13] VITALS: Ht 157.5 cm; Wt 56.7 kg
[~2021-08-13 06:06] MED LIST changes: +HEPARIN SOD (PORCINE) 5000UNITS/ML 1ML VIAL/SYRINGE SQ ONE; +LR 1,000 ML IV ONE; -MIRA3350 PO; -ULTR50TA8 PO; +ceFAZolin SOD 2 GM in IV 1 EA IV ONE
[2021-08-13] MEDS ORDERED: LIDOCAINE 2% 100MG/5ML SDV (FOR ANES.) As Ordered ONE (06:55)
[2021-08-13] MEDS ORDERED: ROCURONIUM BROMIDE 50 MG/5 ML VIAL As Ordered ONE (06:55)
[2021-08-13] MEDS ORDERED: propofoL 200 MG/20 ML VIAL As Ordered ONE (06:56)
[2021-08-13] MEDS ORDERED: MIDAZOLAM INJ 2MG/2ML VIAL (J2250 PER 1MG) As Ordered ONE (06:59)
[2021-08-13] MEDS ORDERED: fentaNYL 100 MCG/2 ML INJECTION (J3010) As Ordered ONE ×2 (06:59→09:53)
[2021-08-13] MEDS ORDERED: LIDOCAINE 1% SDV 30ML VIAL As Ordered ONE (07:10)
[2021-08-13] MEDS ORDERED: BUPIVACAINE HCL 0.25% 30ML VIAL As Ordered ONE (07:10)
[2021-08-13] MEDS ORDERED: dexameTHASONE 4 MG/ML 1ML VIAL (J1100 PER 1MG) As Ordered ONE (07:42)
[2021-08-13] MEDS ORDERED: ACETAMINOPHEN 1000MG 100ML IV BTL (OFIRMEV) (J0131 PER 10MG) As Ordered ONE (08:03)
[2021-08-13] MEDS ORDERED: ONDANSETRON 4MG/2ML VIAL As Ordered ONE (08:03)
[2021-08-13] MEDS ORDERED: ESMOLOL INJ 100MG/10ML VIAL As Ordered ONE (08:14)
[2021-08-13] MEDS ORDERED: PHENYLephrine 500MCG 5ML (100MCG/ML) SYRINGE As Ordered ONE ×3 (08:18→09:10)
[2021-08-13] MEDS: fentaNYL 100 MCG/2 ML INJECTION (J3010) IV PRN ×3 (09:51→11:20)
[2021-08-13] MEDS ORDERED: ULTR50TA8 PO (10:04)
[2021-08-13] MEDS ORDERED: LR 1,000 ML IV SCH (10:15)
[2021-08-13] MEDS ORDERED: ONDANSETRON 4MG/2ML VIAL IV PRN (10:15)
[2021-08-13] MEDS ORDERED: PERCOCET 5MG/325MG TAB PO PRN (10:15)
--- NOTE | 2021-08-13 10:52 | REP ---
INDICATION: ? L ptx COMPARISON: None. TECHNIQUE: Portable AP upright view of the chest FINDINGS: The mediastinum and cardiac silhouette are stable and within normal limits for portable technique. The lung flowers are clear without acute consolidation, effusion, or pneumothorax. Skeletal structures are intact. IMPRESSION: No acute cardiopulmonary process appreciated. No evidence for pneumothorax. <Electronically signed by Diego Lancaster > 08/13/21 [id number]
[2021-08-13] MEDS ORDERED: fentaNYL 100 MCG/2 ML INJECTION (J3010) IV PRN ×2 (12:45→14:40)
--- NOTE | 2021-08-13 14:54 | REP ---
INDICATION: post surgical abdominal pain. COMPARISON: None. TECHNIQUE: Upright view of the abdomen with supine view of the abdomen and pelvis. FINDINGS: Bowel gas pattern is nonspecific. No obstruction or perforation. No organomegaly. No significant foreign body. Skeletal structures are within normal limits. IMPRESSION: Nonspecific bowel gas pattern. <Electronically signed by Diego Lancaster > 08/13/21 [id number]
[2021-08-13 16:40] VITALS: BP 112/68
== END 2021-08-13 18:07 | disposition home or self-care (01) ==
LOC: M SDC 06:06
PROVIDERS: ATTEND Surgery
DX: N60.22 Fibroadenosis of left breast (principal); N64.4 Mastodynia; F43.10 Post-traumatic stress disorder, unspecified; F41.9 Anxiety disorder, unspecified; F32.9 Major depressive disorder, single episode, unspecified; K21.9 Gastro-esophageal reflux disease without esophagitis; Z87.891 Personal history of nicotine dependence; Z88.5 Allergy status to narcotic agent
CPT/HCPCS: 19101; 36415; 71045; 74019; 81025; 86850; 86900; 86901; 88307; J0131; J0690; J1100; J1644; J2250; J2370; J2405; J3010

== ENCOUNTER 2021-08-17 14:48 | Emergency (ER) | payer OTHER ==
[~2021-08-17] VITALS: Ht 157.5 cm; Wt 56.8 kg
[~2021-08-17 14:48] MED LIST changes: -HEPARIN SOD (PORCINE) 5000UNITS/ML 1ML VIAL/SYRINGE SQ ONE; -LR 1,000 ML IV ONE; +ULTR50TA8 PO; -ceFAZolin SOD 2 GM in IV 1 EA IV ONE
[2021-08-17 16:06] LABS: BASO # 0.1 10^3/uL (0.0-0.2); BASO % 0.9 % (0.0-1.0); EOS # 0.1 10^3/uL (0.0-0.5); EOS % 2.2 % (0.0-3.0); HEMATOCRIT 36.7 % (36.0-47.0); HEMOGLOBIN 12.9 g/dl (12.0-15.5); LYMPH # 2.1 10^3/uL (1.5-5.0); LYMPH % 38.7 % (24.0-44.0); MEAN CORPUSCULAR HGB CONC 35.1 g/dl (32.0-36.5); MEAN CORPUSCULAR VOLUME 91.1 fl (80.0-96.0); MONO # 0.2 10^3/uL (0.0-0.8); MONO % 4.4 % (2.0-8.0); NEUTROPHILS % 53.6 % (36.0-66.0); PLATELET COUNT, AUTOMATED 261 10^3/uL (150-450); RED BLOOD COUNT 4.03 10^6/uL (4.00-5.40); WHITE BLOOD COUNT 5.5 10^3/uL (4.0-10.0)
[2021-08-17 16:17] LABS: INR 1.19; PROTHROMBIN TIME 15.5 SECONDS (12.7-14.5)
[2021-08-17 16:18] LABS: PARTIAL THROMBOPLASTIN TIME 32.2 SECONDS (25.9-37.0)
[2021-08-17 16:20] LABS: D-DIMER QUANT 525.08 ng/ml (<500)
[2021-08-17 16:39] LABS: ALBUMIN 3.5 GM/DL (3.2-5.2); BILIRUBIN,DIRECT 0.1 MG/DL (0.0-0.2); BILIRUBIN,TOTAL 0.3 MG/DL (0.2-1.0); TOTAL PROTEIN 6.5 GM/DL (6.4-8.2)
[2021-08-17] MEDS ORDERED: ISOVUE-370 76% 100ML VIAL As Ordered ONE ×2 (16:46→17:01)
[2021-08-17] MEDS ORDERED: MIRA3350 PO (18:25)
[2021-08-17] MEDS ORDERED: MAGNESIUM CITRATE 300 ML BTL PO ONE (18:30)
[2021-08-17 18:33] VITALS: BP 113/66
== END 2021-08-17 18:40 | disposition home or self-care (01) ==
LOC: M ED 14:48
DX: R07.9 Chest pain, unspecified (principal); R10.84 Generalized abdominal pain; N83.202 Unspecified ovarian cyst, left side; K59.00 Constipation, unspecified; J91.8 Pleural effusion in other conditions classified elsewhere; R94.31 Abnormal electrocardiogram [ECG] [EKG]; K21.9 Gastro-esophageal reflux disease without esophagitis; F43.10 Post-traumatic stress disorder, unspecified; Z90.89 Acquired absence of other organs; Z88.6 Allergy status to analgesic agent; Z88.5 Allergy status to narcotic agent
CPT/HCPCS: 36415; 71046; 71275; 74018; 74177; 80047; 80076; 83690; 84484; 84702; 85025; 85379; 85610; 85730; 93005; 99284; Q9967